=== PATIENT | female | born 1980 | race Caucasian/White ===

== ENCOUNTER → 2016-07-07 | Outpatient (CLI) | payer MEDICARE, MEDICAID ==
[~2016-07-07] MED LIST: ADCIRCA20 MG PO; AMOXICILLIN500 MG PO; AUGMENTIN500 MG PO; COUMADIN ** IA5 MG PO; DELTASONE5 MG PO; LEVAQUIN500 MG PO; LOPRESSOR12.5 MG/0. PO; METHOTREXATE (2.5 MG PO; MONO-LINYAH 281 EACH PO; NAPROSYN500 MG PO; REMICADE100 MG IV; TYLENOL EXTRA500 MG PO
== END | disposition disaster alternative care site (69) ==
LOC: GAMB 05:13
DX: I47.1 Supraventricular tachycardia (principal); I27.2 Other secondary pulmonary hypertension; R07.89 Other chest pain; Z98.890 Other specified postprocedural states; Z79.52 Long term (current) use of systemic steroids; Z79.891 Long term (current) use of opiate analgesic; Z79.2 Long term (current) use of antibiotics
CPT/HCPCS: A0422; A0425; A0427